=== PATIENT | female | born 1935 | race Caucasian/White ===

== ENCOUNTER → 2017-08-04 | Outpatient (CLI) | payer OTHER, BC ==
[~2017-08-04] MED LIST: ALBUAER INH; AMLO-110 PO; ATOR10TA82 PO; FURO-85 PO; MAGN400T6 PO; MISCCAP80 PO; MRP25 PO; OLME1TAB11 PO; OXGN; POTA-335 PO; PRLSR20 PO; PROM25TA9 PO; SYMIN160 INH
--- NOTE | 2017-08-04 14:32 | MAMMOGRAPHY REPORT ---
BILATERAL DIGITAL SCREENING MAMMOGRAM TOMOSYNTHESIS WITH CAD: 08/04/2017 CLINICAL HISTORY: Routine screening. Patient has no complaints. TECHNIQUE: Breast tomosynthesis in addition to standard 2D mammography was performed. Current study was also evaluated with a Computer Aided Detection (CAD) system. COMPARISON: Comparison is made to exams dated: 08/01/2016 mammogram, 07/30/2015 mammogram, 4 mammogram, 07/27/2013 mammogram, 07/26/2012 mammogram, and 07/15/2011 mammogram - [facility]. BREAST COMPOSITION: The tissue of both breasts is heterogeneously dense, which may obscure small mas ses. FINDINGS: There are diffuse bilateral rim calcifications, groupings of punctate microcalcifications and moderate vascular calcifications throughout both breasts. Stable asymmetry in the lateral right breast. No new suspicious mass, architectural distortion or cluster of microcalcifications is seen. IMPRESSION: ACR BI-RADS CATEGORY 2: BENIGN There is no mammographic evidence of malignancy. A 1 year screening mammogram is recommended. The pa tient will receive written notification of the results. Approximately 10% of breast cancers are not detected with mammography. A negative mammographic report should not delay biopsy if a clinically suggestive mass is present. Haley Briceño M.D. ay/:08/04/2017 12:47:46 Production Staff Worker: Suri Esteves, [facility] letter sent: Normal 1/2 BI-RADS Code: ACR BI-RADS Category 2: Benign
== END ==
LOC: C.MAMM 09:52
PROVIDERS: ATTEND Family Medicine
DX: Z12.31 Encounter for screening mammogram for malignant neoplasm of breast (principal)